=== PATIENT | male | born 1960 | race African-American/Black ===

== ENCOUNTER 2025-03-19 00:01 | Emergency (ER) | payer OTHER ==
[~2025-03-19] VITALS: Ht 180.3 cm; Wt 88.0 kg
[2025-03-19 00:03] VITALS: O2SAT 98
[2025-03-19 00:14] VITALS: BP 105/77; PULSE 79; RESP 18; TEMP 37; O2SAT 98
== END 2025-03-19 00:44 | disposition home or self-care (01) ==
LOC: ER 00:01
DX: Z20.822 Contact with and (suspected) exposure to COVID-19 (principal); I10 Essential (primary) hypertension; G20.A1 Parkinson's disease without dyskinesia, without mention of fluctuations
CPT/HCPCS: 87426; 99283

== ENCOUNTER 2025-03-25 11:45 | Emergency (ER) | payer OTHER ==
[~2025-03-25] VITALS: Ht 180.3 cm; Wt 91.0 kg
[2025-03-25 11:56] VITALS: O2SAT 98
[2025-03-25] MEDS: KETOROLAC 30MG/ML VIAL IM ONE (12:34)
[2025-03-25 12:36] LABS: BASOPHILS % 0.4 % (0.0-2.0); EOSINOPHILS % 1.4 % (0.0-5.0); HEMATOCRIT. 38.0 % (42.0-52.0); HEMOGLOBIN. 12.4 g/dL (14.0-18.0); LYMPHOCYTES % 20.7 % (20.0-50.0); MEAN PLATELET VOLUME 7.6 fl (7.4-10.4); MONOCYTES % 8.5 % (2.0-8.0); NEUTROPHILS % 69.0 % (40.0-76.0); PLATELET 283 x1000/uL (130-400); RED BLOOD CELL COUNT 4.64 mill/uL (4.7-6.1); RED CELL DISTRIBUTION WIDTH 14.7 % (11.6-14.6)
[2025-03-25 12:50] LABS: CREATININE 1.3 mg/dL (0.6-1.3)
[2025-03-25 12:51] LABS: UREA NITROGEN BLOOD 20 mg/dL (9-23)
[2025-03-25 13:55] LABS: CLARITY URINE CLEAR (CLEAR); COLOR URINE DARK YELLOW (YELLOW); GLUCOSE URINE NEGATIVE (NEGATIVE); KETONES URINE TRACE (NEGATIVE); LEUKOCYTE ESTERASE URINE NEGATIVE (NEGATIVE); NITRITE URINE NEGATIVE (NEGATIVE); OCCULT BLOOD URINE NEGATIVE (NEGATIVE); PH URINE 5.0 (4.5-8.0); PROTEIN URINE TRACE (NEGATIVE); SPECIFIC GRAVITY URINE 1.034 (1.005-1.030); UROBILINOGEN URINE 1.0 E.U./dL (0.2-1.0)
[2025-03-25 14:08] LABS: MUCUS URINE 2+ /lpf (NONE/TRACE)
[2025-03-25 14:09] LABS: SQUAMOUS EPITHELIAL CELL URINE FEW /lpf (RARE/1+)
[2025-03-25 14:10] LABS: BACTERIA URINE NONE SEEN; RBC URINE NONE SEEN /hpf (0-2)
[2025-03-25] MEDS ORDERED: AMOX1TAB16 MT (15:21)
[2025-03-25] MEDS ORDERED: IBUP-1455 MT (15:21)
[2025-03-25] MEDS ORDERED: HYDR-4001 MT (15:21)
[2025-03-25] MEDS ORDERED: ONDA-239 PO (15:24)
[2025-03-25] MEDS ORDERED: HYDROCODONE/ACETAMINOPHEN 5/325MG TABLET PO ONE (15:45)
[2025-03-25 15:51] VITALS: BP 128/88; PULSE 95; RESP 18; TEMP 36.9; O2SAT 98
== END 2025-03-25 15:52 | disposition home or self-care (01) ==
LOC: ER 11:45
DX: K57.32 Diverticulitis of large intestine without perforation or abscess without bleeding (principal); I10 Essential (primary) hypertension; Z79.899 Other long term (current) drug therapy
CPT/HCPCS: 99285; 74176; 80048; 81003; 85025; 36415; 93005; 96372; J1885